=== PATIENT | female | born 1990 | race American Indian/Alaskan Native ===

== ENCOUNTER 2018-12-18 15:33 | Outpatient (CLI) | payer OTHER ==
[2018-12-18] MEDS ORDERED: LACTATED RINGERS 500 ML IV ONE (17:08)
[2018-12-18 17:21] VITALS: BP 106/70
[2018-12-18] MEDS ORDERED: SUBLIMAZE ONE (18:05)
== END 2018-12-18 18:25 | disposition home or self-care (01) ==
LOC: TRG 15:33
PROVIDERS: ATTEND Obstetrics & Gynecology
DX: O26.853 Spotting complicating pregnancy, third trimester (principal); O47.03 False labor before 37 completed weeks of gestation, third trimester; Z3A.29 29 weeks gestation of pregnancy
CPT/HCPCS: 59025; J7120; 96360; J3010

== ENCOUNTER 2019-02-18 20:22 | Outpatient (CLI) | payer OTHER ==
[2019-02-18] MEDS ORDERED: LACTATED RINGERS 1,000 ML IV SCH (21:00)
[2019-02-18 21:14] VITALS: BP 112/74
[2019-02-18] MEDS ORDERED: ACETAMINOPHEN 500 MG TAB PO ONE (21:43)
== END 2019-02-18 22:10 | disposition home or self-care (01) ==
LOC: TRG 20:22
PROVIDERS: ATTEND Obstetrics & Gynecology
DX: O47.1 False labor at or after 37 completed weeks of gestation (principal); Z3A.38 38 weeks gestation of pregnancy
CPT/HCPCS: J7120

== ENCOUNTER 2019-02-19 05:02 | Inpatient (IN) | payer OTHER ==
[2019-02-19] MEDS ORDERED: LACTATED RINGERS 1,000 ML ONE (05:31)
[2019-02-19 06:25] LABS: Basophils % (Auto) 0.4 % (0.0-1.8); Eosinophils % (Auto) 0.1 % (0.0-4.3); Hematocrit 41.8 % (30.3-42.9); Hemoglobin 14.3 gm/dl (10.1-14.3); Lymphocytes # (Auto) 2.3 K/mm3 (1.2-5.4); Lymphocytes % (Auto) 17.5 % (13.4-35.0); Mean Corpuscular HGB Conc 34 % (30-34); Mean Corpuscular Volume 83 fl (79-97); Monocytes # (Auto) 0.5 K/mm3 (0.0-0.8); Monocytes % (Auto) 3.6 % (0.0-7.3); Red Blood Count 5.04 M/mm3 (3.65-5.03); Red Cell Distribution Width 13.9 % (13.2-15.2)
[2019-02-19 06:27] LABS: Platelet Count 217 K/mm3 (140-440)
[2019-02-19] MEDS ORDERED: OXYTOCIN 20 UNIT/1000ML DRIP 20,000 MILLIUNITS/1,000 ML BAG IV ONE (06:28)
--- NOTE | 2019-02-19 07:13 | History and Physical Report ---
History of Present Illness Date of examination: 02/19/19 Date of admission: 02/19/19 05:17 Chief complaint: Contractions History of present illness: 28yo G 3 P 0 0 2 0 @ 38 weeks 1 day here via EMS with complaints of worsening contractions. She was initially evaluated on 02/18/19 and discharged home for false labor. She reports +FMs but denies VB or LOF. She received care at [facility] in [place], [place]. She reports no complications throughout the . Her past medical history is unremarkable. No records are available. GBS is unknown. Past History Past Medical History: no pertinent history Past Surgical History: no surgical history Family/Genetic History: diabetes (Type I and Type II), cancer (lung) Social history: single, lives with family, full code. denies: smoking, alcohol abuse, prescription drug abuse, IV drug use - Obstetrical History Expected Date of Delivery: 03/04/19 Actual Gestation: 38 Week(s) 1 Day(s) : 3 Para: 0 Hx # Term Pregnancies: 0 Number of Pregnancies: 0 Spontaneous Abortions: 0 Induced : 2 Number of Living Children: 0 Medications and Allergies Allergies Allergy/AdvReac Type Severity Reaction Status Date / Time No Known Allergies Allergy Unverified 12/18/18 17:06 Active Meds: Active Medications Oxytocin/Sodium Chloride (Pitocin/Ns 20 Unit/1000ml Drip) 20 units in 1,000 mls @ 125 mls/hr IV DIRECT PEÑA Lactated Ringer's (Lactated Ringers) 1,000 mls @ 125 mls/hr IV DIRECT PEÑA Lidocaine (Xylocaine 2%) 20 ml INFILTRATI ONCE ONE Stop: 02/19/19 07:06 Review of Systems All systems: negative - Vital Signs Vital signs: Vital Signs Pulse BP 104 H 137/64 02/19/19 05:20 02/19/19 05:20 Temp Pulse Resp BP Pulse Ox 88 121/79 02/19/19 07:03 02/19/19 07:03 - Physical Exam Genitourinary (Female): Positive: normal external genitalia, normal perenium Vulva: both: normal - Obstetrical FHR: auscultation normal, category 1 FHR comments: baseline 140, moderate variability, 15x15 accels, no decels Cervical Dilatation: 10 Cervical Effacement Percentage: 100 station: +2 Uterine Contraction Frequency (min): 1.5-5 Uterine Contraction Pattern: Regular Results Result Diagrams: 02/19/19 05:27 Abnormal lab results 02/19/19 Range/Units 05:27 WBC 13.0 H (4.5-11.0) K/mm3 RBC 5.04 H (3.65-5.03) M/mm3 Seg Neutrophils % 78.4 H (40.0-70.0) % Seg Neutrophils # 10.2 H (1.8-7.7) K/mm3 All other labs normal. Assessment and Plan - Patient Problems (1) 38 weeks gestation of Current Visit: Yes Status: Acute (2) Active labor at term Current Visit: Yes Status: Acute Plan to address problem: Admit to L&D with routine labor orders Anticipate imminent vaginal delivery
--- NOTE | 2019-02-19 07:23 | Procedure Note ---
OB Delivery Note - Delivery Date of Delivery: 02/19/19 (06:20) Surgeon: STAN RODRIGUEZ (MARIO) Estimated blood loss: <100cc - Vaginal Delivery presentation: vertex Delivery position: OA Intrapartum events: precipitous labor- <3hr Delivery induction: none Delivery monitor: external FHT, external uterine Route of delivery: (06:20) Delivery placenta: spontaneous (06:27) Delivery cord: 3 umbilical vessels Episiotomy: none Delivery laceration: 1st degree (left labial) Delivery repair: vicryl (3-0 SH) Anesthesia: local Delivery comments: Precipitous of a vigorous term 5 lbs 14 oz male on 02/19/19 @ 06:20. Baby placed [id number] on maternal abdomen and dried. Cord blood collected. Spontaneous delivery of placenta, Atif-side presenting @ 06:27. Small lochia present. Fundal massage and IV PItocin bolus initiated. Fundus F/ML/U-2. Placenta intact; was discarded. Perineum intact. 1st degree left labial lacer ation present and repaired under local anesthesia. Patient tolerated the procedure well. Mom and baby in stable condition. - A at 1 minute: 9 at 5 minutes: 9 Infant Gender: Female (5 lbs 14 oz (2333 gm); 17.5 in)
[2019-02-19] MEDS ORDERED: ACETAMINOPHEN 325 MG TAB PO PRN (07:30)
[2019-02-19] MEDS ORDERED: WITCH HAZEL/ GLYCERIN PAD TP PRN (08:00)
[2019-02-19] MEDS ORDERED: PROMETHAZINE 25 MG TAB PO PRN (08:00)
[2019-02-19] MEDS ORDERED: diphenhydrAMINE 25 MG CAP PO PRN (08:00)
[2019-02-19] MEDS ORDERED: LACTATED RINGERS 1,000 ML IV SCH (08:00)
[2019-02-19] MEDS ORDERED: ONDANSETRON 4 MG/2 ML INJ IV PRN (08:00)
[2019-02-19] MEDS ORDERED: LANOLIN/ZINC/DIMETHICONE (LANSINOH) 7 GM TP PRN (08:00)
[2019-02-19] MEDS ORDERED: OXYTOCIN 20 UNIT/1000ML DRIP 20 UNITS/1,000 ML BAG IV SCH (08:00)
[2019-02-19] MEDS ORDERED: HYDROcodone/ACETAMINOPHEN 5-325 MG TAB PO PRN (08:00)
[2019-02-19] MEDS ORDERED: PROMETHAZINE 25 MG RECT SUPP PR PRN (08:00)
[2019-02-19] MEDS ORDERED: LIDOCAINE (2%) 20 MG/1 ML VIAL 20 ML MDV INFILTRATI ONE (08:00)
[2019-02-19] MEDS: IBUPROFEN 600 MG TAB PO SCH ×3 (09:14→20:27)
[2019-02-19] MEDS: PRENATAL VIT27-FE FUMARATE-FOLIC ACID VIT TAB PO SCH (11:04)
[2019-02-19] MEDS: FERROUS SULFATE 325 MG TAB PO SCH (11:05)
--- NOTE | 2019-02-19 14:29 | History and Physical Report ---
History of Present Illness Date of examination: 02/19/19 Date of admission: 02/19/19 05:17 Chief complaint: contractions History of present illness: 28y/o @ 38+1 weeks presents in active labor with advanced cervical dilation of 10cm at presentation. Patient is a walk-in patient who received care at [facility] ([phone]). The patient states she is GBS negative. Will obtain records once office opens. Past History Past Medical History: no pertinent history Past Surgical History: other (Bartholin cyst) Family/Genetic History: diabetes (Type I and Type II), cancer (lung) - Obstetrical History Expected Date of Delivery: 03/04/19 Actual Gestation: 38 Week(s) 1 Day(s) : 3 Para: 0 Hx # Term Pregnancies: 0 Number of Pregnancies: 0 Spontaneous Abortions: 0 Induced : 2 Number of Living Children: 0 Medications and Allergies Allergies Allergy/AdvReac Type Severity Reaction Status Date / Time No Known Allergies Allergy Unverified 12/18/18 17:06 Active Meds: Active Medications Acetaminophen (Tylenol) 650 mg PO Q4H PRN PRN Reason: Pain MILD(1-3)/Fever >100.5/LOPEZ Acetaminophen/Hydrocodone Bitart (Tyner 5/325) 2 each PO Q6H PRN PRN Reason: Pain, Moderate (4-6) Bisacodyl (Dulcolax) 10 mg MI BID PRN PRN Reason: Constipation Diphenhydramine HCl (Benadryl) 25 mg PO Q6H PRN PRN Reason: Itching Ferrous Sulfate (Feosol) 325 mg PO QDAY [facility] Last Admin: 02/19/19 11:05 Dose: Not Given Documented by: Ibuprofen (Ibuprofen) 600 mg PO Q6H [facility] Last Admin: 02/19/19 09:14 Dose: 600 mg Documented by: Magnesium Hydroxide (Milk Of Magnesia) 30 ml PO HS PRN PRN Reason: Constipation Multi-Ingredient Ointment (Lansinoh) 1 applic TP PRN PRN PRN Reason: Sore Nipples Multivitamins/Iron/Calcium ( Vitamin) 1 each PO QDAY [facility] Last Admin: 02/19/19 11:04 Dose: 1 each Documented by: Ondansetron HCl (Zofran) 4 mg IV Q8H PRN PRN Reason: Nausea And Vomiting Promethazine HCl (Phenergan) 25 mg MI Q6H PRN PRN Reason: Nausea And Vomiting Promethazine HCl (Phenergan) 25 mg PO Q6H PRN PRN Reason: Nausea And Vomiting Sodium Chloride (Sodium Chloride Flush Syringe 10 Ml) 10 ml IV PRN PRN PRN Reason: flush Witch [place]/Glycerin (Tucks Pad) 1 each TP PRN PRN PRN Reason: Hemorrhoid/cleansing/soothing Review of Systems All systems: negative Genitourinary: pelvic pain, contractions - Vital Signs Vital signs: Vital Signs Pulse BP 104 H 137/64 02/19/19 05:20 02/19/19 05:20 Temp Pulse Resp BP Pulse Ox 97.6 F 80 18 109/62 100 02/19/19 12:48 02/19/19 12:48 02/19/19 12:48 02/19/19 12:48 02/19/19 12:48 - Physical Exam Breasts: Positive: deferred Cardiovascular: Regular rate Lungs: Positive: Clear to auscultation Abdomen: Positive: normal appearance Results Result Diagrams: 02/19/19 05:27 Abnormal lab results 02/19/19 Range/Units 05:27 WBC 13.0 H (4.5-11.0) K/mm3 RBC 5.04 H (3.65-5.03) M/mm3 Seg Neutrophils % 78.4 H (40.0-70.0) % Seg Neutrophils # 10.2 H (1.8-7.7) K/mm3 All other labs normal. Assessment and Plan - Patient Problems (1) 38 weeks gestation of Current Visit: Yes Status: Acute Plan to address problem: performed by in house CNM (2) Active labor at term Current Visit: Yes Status: Acute
[2019-02-19] MEDS ORDERED: BENZOCAINE/MENTHOL 20/0.5% TOP SPRAY 56 GM TP PRN (20:12)
[2019-02-19] MEDS ORDERED: MAGNESIUM HYDROXIDE (MOM) ORAL LIQD UDC PO PRN (22:00)
[2019-02-20] MEDS: IBUPROFEN 600 MG TAB PO SCH ×3 (03:16→18:50)
[2019-02-20 07:59] LABS: Hematocrit 35.7 % (30.3-42.9); Hemoglobin 11.7 gm/dl (10.1-14.3)
[2019-02-20] MEDS: FERROUS SULFATE 325 MG TAB PO SCH (10:44)
[2019-02-20] MEDS: PRENATAL VIT27-FE FUMARATE-FOLIC ACID VIT TAB PO SCH (10:44)
--- NOTE | 2019-02-20 13:40 | Progress Note ---
Assessment and Plan A/P PPD1 doing well discharge home tomorrow Subjective - Subjective Date of service: 02/20/19 Principal diagnosis: Patient reports: appetite normal, voiding normally, pain well controlled, flatus, ambulating normally Junction: doing well Objective - Vital Signs Latest vital signs: Vital Signs Temp Pulse Resp BP Pulse Ox 02/20/19 10:08 89 02/20/19 08:59 99.4 F 86 18 104/65 97 02/19/19 23:29 98.6 F 85 20 104/71 96 02/19/19 19:48 98.2 F 85 20 114/78 97 02/19/19 15:54 97.9 F 103 H 12 99/59 97 Intake and Output 02/19/19 02/20/19 02/20/19 23:59 07:59 15:59 Intake Total 240 Output Total 900 Balance -900 240 Intake: Oral 240 Output: Urine 900 Void 900 Other: Total, Intake Amount 240 Total, Output Amount 900 # Voids Void 1 1 - Exam Breasts: Present: normal Cardiovascular: Present: Regular rate, Normal S1 Lungs: Present: Clear to auscultation, Normal air movement Abdomen: Present: normal appearance, normal bowel sounds. Absent: distention, tenderness, guarding Uterus: Present: normal, firm, fundal height below umbilicus. Absent: bogginess, tenderness Extremities: Present: normal Deep Tendon Reflex Grade: Normal +2 Incision: Present: normal
--- NOTE | 2019-02-20 13:42 | Discharge Summary ---
Providers - Providers Date of Admission: 02/19/19 05:17 Date of discharge: 02/22/20 Attending physician: JANAK SARGENT Primary care physician: JANAK SARGENT Hospitalization Reason for admission: active labor Delivery: Episiotomy: none Laceration: none Incision: normal, dry, intact complications: none Discharge diagnosis: IUP at term delivered baby: female Hospital course: unremarkable hospital course. . discharge home on PPD 2. walk in patient Condition at discharge: Good Disposition: DC-01 TO HOME OR SELFCARE Plan - Discharge Medications Prescriptions: Ferrous Sulfate [Feosol 325 MG tab] 325 mg PO BID #30 tablet Ibuprofen [Motrin] 600 mg PO Q8H PRN #30 tablet PRN Reason: Pain - Provider Discharge Summary Activity: routine, no sex for 6 weeks, no strenuous exercise Diet: routine Instructions: routine Additional instructions: [] Smoking cessation referral if applicable(refer to patient education folder for contact #) [] Refer to [facility] Booklet Call your doctor immediately for: * Fever > 100.5 * Heavy vaginal bleeding ( >1 pad per hour) * Severe persistent headache * Shortness of breath * Reddened, hot, painful area to leg or breast * Drainage or odor from incision. * Keep incision clean and dry at all times and follow doctor's instructions regarding bathing/showering - Follow up plan Follow up: JANAK SARGENT MD [Primary Care Provider] - 03/13/19
[2019-02-21] MEDS: IBUPROFEN 600 MG TAB PO SCH ×3 (04:04→14:21)
[2019-02-21] MEDS: PRENATAL VIT27-FE FUMARATE-FOLIC ACID VIT TAB PO SCH (08:38)
[2019-02-21 17:08] VITALS: BP 120/76
== END 2019-02-21 16:41 | disposition home or self-care (01) | DRG 775 ==
LOC: TRG 05:02 → LD 05:13 → TRG 05:16 → LD 05:17 → OB 11:00
PROVIDERS: ADMIT Obstetrics & Gynecology; ATTEND Obstetrics & Gynecology
PROC: 10E0XZZ Delivery of Products of Conception, External Approach (ICD-10-PCS; principal; 2019-02-19)
PROC: 0UQMXZZ Repair Vulva, External Approach (ICD-10-PCS; 2019-02-19)
DX: O62.3 Precipitate labor (principal); Z3A.38 38 weeks gestation of pregnancy; Z37.0 Single live birth; Z83.3 Family history of diabetes mellitus; Z80.1 Family history of malignant neoplasm of trachea, bronchus and lung; O70.0 First degree perineal laceration during delivery
CPT/HCPCS: 36415; 85014; 85018; 85025; 86592; 86706; 86762; 86850; 86900; 86901; 87806; G0378; A6250; J2590; J7120